=== PATIENT | male | born 1970 | race African-American/Black ===

== ENCOUNTER 2017-04-02 19:30 | Emergency (ER) | payer SELFPAY ==
--- NOTE | 2017-04-02 21:09 | ED Physician Documentation ---
Upper Extremity Problem - HISTORIAN Historian: patient - HPI Stated Complaint: L WRIST PAIN Chief Complaint: Upper Extremity Problem Location: L wrist Onset: days ago Timing: worse Severity: moderate Exacerbated By: change in position Relieved By: nothing Quality: pain, swelling, tenderness Further Comments: yes (46 year old male patient presents with complaints of left wrist pain, patient denies any injury, reports moving a couch this past weekend, concerned it may be his gout. C/O pain pronation and supination of left wrist. 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.) - ROS CONST: no problems EYES/ENT: none CVS/RESP: none GI/: none MS/SKIN/LYMPH: denies: calf pain, joint pain, rash NEURO/PSYCH: denies: headache - PAST HX Past History: none Allergies/Adverse Reactions: Allergies Allergy/AdvReac Type Severity Reaction Status Date / Time No Known Allergies Allergy Verified 04/02/17 20:01 Home Medications: Ambulatory Orders Medication Instructions Recorded Ketorolac Tromethamine [Toradol] 10 mg PO TID #15 tablet 04/02/17 - SOCIAL HX Smoking History: cigarettes - FAMILY HX Family History: denies: none - VITAL SIGNS Vital Signs: Vital Signs Temp Pulse Resp BP Pulse Ox 98.2 F 71 18 139/80 96 04/02/17 21:20 04/02/17 21:20 04/02/17 21:20 04/02/17 21:20 04/02/17 21:20 - REVIEWED ASSESSMENTS Nursing Assessment Reviewed: Yes Vitals Reviewed: Yes Progress - Progress Progress: Medicated for pain with toradol IM. Patient drove to ER, will discharge with 2 vicodin tabs. ED Results Lab/Radiology - Lab Results Lab Results: Lab Results 04/02/17 20:01 Uric Acid 8.1 mg/dL mg/dL (3.5-8.5) - Radiology Radiology Impressions: Left wrist 3 views History: Swelling and pain. History of gout Findings: Soft tissue swelling is observed in the distal forearm and wrist without fracture, dislocation, arthropathy, or focal bone lesion. Electronically signed on Apr 02, 2017 8:59:47 PM NETWORK INFRASTRUCTURE ARCHITECT by: Shabbir Olivas - Orders Orders: ED Orders Category Date Time Status Benigno Wrap Affected Extremity 1T Care 04/02/17 21:10 Active WRIST 3 VIEWS OR MORE [RAD] Stat Exams 04/02/17 Completed URIC ACID Stat Lab 04/02/17 20:01 Completed HYDROcodone /APAP 5/325 [Sweet 5/325] Med 04/02/17 21:09 Discontinued 2 each PO NOW ONE Ketorolac Tromethamine [Toradol] Med 04/02/17 21:00 Discontinued 60 mg IM NOW ONE Upper Extremity Problem - EXAM General Appearance: mild distress Skin: normal color, warm/dry, NR, INT, PAL, DR Shoulder Exam: normal inspection, non-tender, no evidence of injury, normal ROM Elbow/Forearm Exam: normal inspection, non-tender, no evidence of injury, normal ROM Wrist Exam: no evidence of injury, bone tenderness, limited ROM, pain, soft tissue tenderness, swelling Hand Exam: normal inspection, non-tender, no evidence of injury, normal ROM EENT: YVAN Vascular: no vascular compromise Peripheral: sensation nml, motor nml Respiratory: no resp. distress Discharge Clincal Impression: Wrist pain, acute Qualifiers: Laterality: left Qualified Code(s): M25.532 - Pain in left wrist Prescriptions: Ketorolac Tromethamine [Toradol] 10 mg PO TID #15 tablet Referrals: Oliver Harris MD [STAFF PHYSICIAN] - 2 Days Additional Instructions: Ice Rest Elevation If you are unable to bear weight and continuing to have significant pain on day 3-4; see your PCP for re-evaluation and additional xrays. You may use Tylenol every 4hour as needed for pain. Limit your dose to less than 4 G per day. Do not take ibuprofen, aleve, naproxen or any other NSAID while you are on toradol. 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 Follow up with PCP if not improvement by Friday. Condition: Stable Disposition: HOME, SELF-CARE Decision to Admit: NO Decision Time: 21:08
[2017-04-02] MEDS: KETOROLAC TROMETHAMINE 60 MG/2 ML VIAL IM ONE (21:20)
[2017-04-02] MEDS: HYDROcodone /APAP 5/325 1 EACH TABLET PO ONE (21:21)
--- NOTE | 2017-04-02 21:35 | Diagnostic Imaging Report ---
RADHA CARMICHAEL (HILDA) - ER [facility] [address] [id number] Report Submission Date: Apr 02, 2017 8:59:47 PM DIGITAL COMMENTATOR Patient Study Name: PUJA FAIRCHILD Date: Apr 02, 2017 8:48:18 PM DIGITAL COMMENTATOR Modality Type: CR Gender: M Description: UPPER EXTREMITY : 66 Institution: [facility] Physician: RADHA CARMICHAEL (HILDA) - ER Left wrist 3 views History: Swelling and pain. History of gout Findings: Soft tissue swelling is observed in the distal forearm and wrist without fracture, dislocation, arthropathy, or focal bone lesion. Electronically signed on Apr 02, 2017 8:59:47 PM DIGITAL COMMENTATOR by: Shabbir SHI
[2017-04-02 21:37] VITALS: BP 139/80
== END 2017-04-02 21:20 | disposition home or self-care (01) ==
LOC: ED 19:30
DX: M25.532 Pain in left wrist (principal)
CPT/HCPCS: 73110; 84550; A9270; J1885; 96372; 99283